=== PATIENT | male | born 1980 | race Caucasian/White ===

== ENCOUNTER 2021-03-23 22:39 | Emergency (ER) | payer OTHER ==
[~2021-03-23] VITALS: Ht 177.8 cm; Wt 85.3 kg
[2021-03-24] MEDS ORDERED: MEDROLPACK PO (00:08)
[2021-03-24] MEDS ORDERED: NORFLEX100MG PO (00:08)
[2021-03-24] MEDS ORDERED: ACETAMINOPHEN650 M2 PO (00:08)
== END 2021-03-24 00:02 | disposition home or self-care (01) ==
LOC: ER 22:39
DX: M54.2 Cervicalgia (principal); M54.5 Low back pain

== ENCOUNTER 2022-02-07 08:43 | Outpatient (CLI) | payer OTHER ==
[~2022-02-07 08:43] MED LIST: ACETAMINOPHEN650 M2 PO; MEDROLPACK PO; NORFLEX100MG PO
== END 2022-02-07 08:52 | disposition home or self-care (01) ==
LOC: RX STUDY 08:43
PROVIDERS: ATTEND Internal Medicine Gastroenterology
DX: K59.00 Constipation, unspecified (principal); K63.5 Polyp of colon; K56.600 Partial intestinal obstruction, unspecified as to cause; C18.9 Malignant neoplasm of colon, unspecified